=== PATIENT | male | born 1975 | race Caucasian/White ===

== ENCOUNTER 2019-09-24 16:57 | Emergency (ER) | payer BC, SELFPAY ==
[2019-09-24 17:02] VITALS: BP 159/100; PULSE 96; RESP 20; TEMP 36.1; O2SAT 96
--- NOTE | 2019-09-24 17:27 | W.ED.GENAD ---
Discharge Plan Disposition Patient Disposition: HOME Condition: Good Discharge Details Chief Complaint: Orthopedic Clinical Impression: Patellar tendinitis Primary Care Provider: Kate Vasquez ED Provider: Salina Pinedo Home Meds and New Rx's Prescriptions: Continued sertraline 50 mg Tablet 50 mg PO DAILY RF: 0 cholecalciferol (vitamin D3) [Vitamin D3] 125 mcg (5,000 unit) Tablet 5,000 unit PO DAILY RF: 0 Discharge Instructions Instructions: Tendinitis (ED) Additional Instructions: Encourage rest, ice, elevation. Please continue with Aleve as needed for discomfort. You may augment this with Tylenol as needed for pain. Encourage flexion as discussed to regain your range of motion. If you develop fever/chills, increased pain or other new/worsening symptoms please seek care urgently once again. Otherwise, please call orthopedics offices to schedule follow up appointment, number listed below. Referrals: Ganga Balderas MD [ [facility] STAFF PHYSICIAN] - Discharge Data Discharge Date/Time-TO BE ENTERED AT DEPARTURE: 09/24/19 19:02 Medical Decision Making Patient is a 44 year old male, presenting today, accompanied by his , with c/c of left knee pain that began insidiously 2 days ago. Denies any fevers or chills. Denies endometrioma. However, does report playing with his children being on his knees throughout the course the day. He reports that he has had an exact as pain in his knee historically but it is been several years. Believes he was diagnosed with a meniscal injury. On exam, patient is resting comfortably. Exam of the right knee is significant for limited range of motion. He is unable to flex past 45 degrees. No evidence of trauma. He is primarily point tender over the patellar tendon. He has no effusion, no erythema, warmth or drainage. No evidence of trauma. Exam is limited secondary to the patient's discomfort and very limited mobility but he does not have any discomfort or evidence of ligamentous injury with varus valgus stress testing. Unable to perform Jeronimo's testing. He does not have any discomfort with axial loading. Plan for imaging. FINDINGS: Bones/joints: Mild degenerative changes. No evidence for acute bony injury. Soft tissues: Unremarkable. IMPRESSION: 1. Mild degenerative changes. 2. No evidence for acute bony injury. If clinical symptoms persist recommend followup film in 7-10 days. At this time, patient does not appear to be acute meniscal injury. He is more tender directly over the patellar tendon make me think more patellar tendinitis. However, given the patient's history and his severe pain and limited flexion, I do feel that follow-up with orthopedics would be appropriate for reevaluation of possible meniscal injury. Encourage rest, ice, elevation. Patient will be fitted with a hinged knee brace to help with discomfort. We discussed return precautions. He will contact orthopedics tomorrow to schedule follow-up appointment. All his questions and concerns were addressed and he is in agreement this plan. HPI General Mode of arrival: ambulatory. Date/Time Provider Initiated Documentation: 09/24/19 17:27. Limitations to Documentation: no limitations. Information obtained by: patient, family () and RN notes reviewed. History of Present Illness 44 year old M presents to the emergency department with the chief complaint of right knee pain, described as moderate, with intensity rated at 6. Quality is described as aching, and is localized to the right and lower extremity. Patient reports no radiation. Patient started experiencing this day(s) (2) and it has been constant. Immobilization improves symptom(s), Patient notes no other symptoms.; denies fever/chills, rash, shortness of breath and weakness. Patient did receive the following treatments prior to arrival, none Related Data Home Medications Medication Instructions Recorded Confirmed cholecalciferol (vitamin D3) 5,000 unit PO DAILY 09/24/19 09/24/19 [Vitamin D3] sertraline 50 mg PO DAILY 09/24/19 09/24/19 Allergies Allergy/AdvReac Type Severity Reaction Status Date / Time No Known Allergies Allergy Unverified 09/24/19 17:05 General Stated Complaint: Orthopedic KAYLA: 3 Review of Systems Constitutional Constitutional: Reports as per HPI, Denies chills, Denies fever(s), Denies headache(s) and Denies weakness ENT Ears, Nose, Mouth, and Throat: Denies headache(s) Cardiovascular Cardiovascular: Reports as per HPI Respiratory Respiratory: Reports as per HPI and Denies cough Musculoskeletal Musculoskeletal: Reports as per HPI and Denies tingling Integumentary/Breasts Skin/Breast: Reports as per HPI, Denies rash and Denies wounds Neurologic Neurologic: Reports as per HPI, Denies headache(s), Denies tingling, Denies paresthesias and Denies weakness [facility] Social History Smoking/Tobacco Use Status: Never Alcohol Intake: current Alcohol Intake frequency: a few times a month Substance use type: does not use Do you feel safe at home: Yes Exam Const General: cooperative, healthy appearing, comfortable, no acute distress, well developed and well groomed Nutritional Appearance: average body habitus and well nourished Orientation: alert and awake Resp Effort & Inspection: normal respiratory effort, able to speak in complete sentences and no respiratory distress Cardio Rate: regular rate Rhythm: regular rhythm Skin General skin exam: no rashes or lesions noted Lesions: no lesions Rashes: no rashes Trauma: no lacerations or abrasions Neuro General: alert and awake Cognition: normal cognition Speech: speech normal Gait: antalgic Motor: muscle tone normal throughout Sensory Exam: no sensory deficits noted Extrem Right lower extremity: normal capillary refill, no joint enlargement, hip/thigh Details: normal to inspection, knee Details: tenderness Location: of the infrapatellar area and abnormal ROM Details: held in an abnormal fashion Details: in extension, pain with active ROM during Details: in flexion and pain with passive ROM during Details: in flexion; able to extend lower leg actively; inspection abnormal, no swelling, ROM abnormal, normal knee ligament exam, no abrasions, no lacerations, no ecchymosis, no crepitus, no deformity and no unusual warmth, lower leg Details: normal to inspection and no edema; no tenderness, no localized swelling, no palpable cords, no ecchymosis, no crepitus, no deformity and no unusual warmth, ankle Details: normal to inspection and foot Details: normal capillary refill; abnormal to inspection (tender over patellar tendon), ROM limited (unable to flex past 45 degrees secondary to anterior knee pain) and no edema Psych Appearance: grossly normal and well kempt Mental Status: mental status grossly normal Speech and Movement: speech and movement normal Course Vital Signs Vital signs: Vital Signs Temperature 36.1 C L 09/24/19 17:02 Pulse 96 H 09/24/19 17:02 Respiratory Rate 20 09/24/19 17:02 Blood Pressure 159/100 H 09/24/19 17:02 Pulse Oximetry 96 09/24/19 17:02 Temperature 36.1 C L 09/24/19 17:02 Temperature Source Temporal Artery Scan 09/24/19 17:02 Pulse 96 H 09/24/19 17:02 Respiratory Rate 20 09/24/19 17:02 Blood Pressure 159/100 H 09/24/19 17:02 Blood Pressure Position Sitting 09/24/19 17:02 Pulse Oximetry 96 09/24/19 17:02 Oxygen Delivery Method Room Air 09/24/19 17:02 Oxygen Flow Rate 0 09/24/19 17:02 Pain Level 0 09/24/19 17:02 Comment 09/24/19 17:02
[2019-09-24] MEDS: Acetaminophen 500 MG TAB 1000 MG PO (17:56)
--- NOTE | 2019-09-24 18:11 | DI.RAD_ITS ---
EXAM: XR KNEE RT 4V AP,LAT,LUC,PAT INDICATION: pain anteriorly, unable to flex. COMPARISON: No exams were available for comparison TECHNIQUE: 2D digital imaging was performed. FINDINGS: No fracture or joint effusion is seen. Degenerative changes are noted, greatest at the patellofemora l joint. IMPRESSION: No acute abnormality. Degenerative changes.
--- NOTE | 2019-09-24 18:33 | DI.VRAD_ITS ---
PROCEDURE INFORMATION: Exam: XR Left Knee Exam date and time: 09/24/2019 6:18 PM Age: 44 years old Clinical indication: Right; Patient HX: Pain R knee, unable to flex TECHNIQUE: Imaging protocol: XR Left knee. Views: 4 or more views. COMPARISON: No relevant prior studies available. FINDINGS: Bones/joints: Mild degenerative changes. No evidence for acute bony injury. Soft tissues: Unremarkable. IMPRESSION: 1. Mild degenerative changes. 2. No evidence for acute bony injury. If clinical symptoms persist recommend followup film in 7-10 days. Dictated and Authenticated by: Iris Craven MD. Ordering:GURDEEP Downing MD
== END 2019-09-24 19:02 | disposition home or self-care (01) ==
PROVIDERS: Emergency Provider Physician Assistant; PCP Nurse Practitioner Family
DX: M76.52 Patellar tendinitis, left knee (principal)
CPT/HCPCS: 29505; 99283; 73564; L1810

== ENCOUNTER 2021-08-08 20:28 | Emergency (ER) | payer BC, SELFPAY ==
[2021-08-08 20:35] VITALS: BP 127/100; PULSE 102; RESP 16; TEMP 36.4; O2SAT 96
--- NOTE | 2021-08-08 20:45 | DI.CT_ITS ---
Exam(s) CT ABDOMEN PELVIS W EXAM: CT ABDOMEN PELVIS W CLINICAL HISTORY: RLQ abd Pain. TECHNIQUE: Imaging Protocol: Axial computed tomography images with coronal and sagittal reformatted images were created and reviewed CONTRAST MATERIAL: Intravenous: Omnipaque 100cc Oral: None COMPARISON: No exams were available for comparison FINDINGS: VISUALIZED LUNG BASES: No nodules nor pleural effusions evident. ABDOMEN: There is no ascites. LIVER: The liver is diffusely hypodense implying steatosis. There are no discrete focal hepatic lesi ons evident. No dilatation of intrahepatic ducts. GALLBLADDER/BILIARY: No obvious gallbladder pathology. CBD is not dilated. PANCREAS: No evidence of pancreatic mass nor dilatation of the pancreatic duct. SPLEEN: Spleen is not enlarged. No obvious intrasplenic lesions. Splenic and portal veins are paten t. ADRENALS: Right adrenal gland unremarkable. Mild fusiform thickening of the lateral limb of the left adrenal gland is noted. KIDNEYS:There is a tiny nonobstructive calculus in left kidney. There are few small parapelvic cysts in the right kidney. No solid renal masses evident. No hydronephrosis. No hydroureter. No obviou s findings in the urinary bladder. No solid renal masses. ABDOMINAL AORTA: Abdominal aorta is not enlarged. LYMPH NODES:There is no retroperitoneal nor paraaortic adenopathy. ABDOMINAL WALL: No evidence of significant anterior abdominal wall nor inguinal hernia. GI: There is no evidence of bowel obstruction, free air, nor abscess. PELVIS: GI: No evidence of appendicitis.No evidence of sigmoid diverticulitis. LYMPH NODES: There is no intrapelvic nor inguinal adenopathy. REPRODUCTIVE: Normal size prostate. Seminal vesicles unremarkable URINARY BLADDER: No calculi nor obvious masses evident OSSEOUS: No significant osseous lesions. There is partial ankylosis of the right sacroiliac joint. IMPRESSION: 1. Hepatic steatosis. Mild hepatomegaly. No discrete focal hepatic lesions. No ascites. 2. Tiny 2-3 millimeter nonobstructive calculus in the left kidney and small parapelvic cysts are note d in the right kidney. 3. Mild fusiform dilatation of the lateral limb of the left adrenal gland, possibly small adenoma. N o other adrenal findings. RADIATION DOSE DELIVERED: 1,955.8mGy.cm Total DLP DATA REPOSITORY: All CT scans at this facility are submitted to the National Radiology Data Registry (NRDR) Dose Index Registry (DIR) with the [employer] ([employer]). RADIATION OPTIMIZATION: All CT scans at this facility use at least one of these dose optimization te chniques: automated exposure control; mA and/or kV adjustment per patient size (includes targeted exa ms where dose is matched to clinical indication); or iterative reconstruction.
--- NOTE | 2021-08-08 20:50 | ED.GENADUL_ITS ---
Discharge Plan Disposition Patient Disposition: HOME Condition: Stable Discharge Details Clinical Impression: Abdominal pain, Adrenal hyperplasia Primary Care Provider: Ganga Sosa ED Provider: Katina Dutta Home Meds and New Rx's Prescriptions: Continued sertraline 50 mg Tablet 150 mg PO DAILY RF: 0 cholecalciferol (vitamin D3) [Vitamin D3] 125 mcg (5,000 unit) Tablet 5,000 unit PO DAILY RF: 0 semaglutide (weight loss) 0.25 mg/0.5 mL Pen Injector 1 mg SUBCUT QWEEK RF: 0 Discharge Instructions Instructions: Abdominal Pain (ED) Additional Instructions: Please follow-up with your primary care provider regarding the cyst on your kidney and the adrenal nodule and enlarged adrenal glands. The CT of your abdomen shows no indication for appendicitis. However you do have some constipation which can contribute to the pain. At this time it is most likely due to an abdominal wall strain. Please take Tylenol or Ibuprofen with food every 4-6 hours as needed for pain and swelling. Follow up with primary care provider in 3-5 days. Return to ED sooner if any worsening or concerns. Increase oral fluids. Referrals: Ganga Sosa [Primary Care Provider] - 5 days Medical Decision Making Presents to the 46-year-old male presents to the ER with chief complaint of right lower quadrant abdominal pain for the last 3 days. Patient report that he turned and cough and noted an acute sharp pain in his right lower quadrant. Reports that it has been present intermittently since then and has worsened. Gets worse with bending or movement. He did have diarrheal stools last night. Denies any nausea vomiting, fever or chills. He does endorse cough for the last couple. He states that he had a negative home Covid antigen test recently. He does report that he began a weight loss injection on the day that this pain began. He denies any other associated symptoms. No history of abdominal surgeries. Abdominal work-up ordered including CBC, CMP,, CT abdomen pelvis with contrast. Differential diagnosis includes vomiting to appendicitis, hernia, musculoskeletal CBC shows no leukocytosis, CMP largely within normal limits glucose is 141, CT abdomen pelvis with contrast results per V rad as noted below. IMPRESSION: 1. Constipation without bowel obstruction. Normal appendix. 2. Enlarged, fatty infiltrated liver. 3. Cystic lesions within the inferior pole of the right kidney, likely r epresenting parapelvic cysts. No hydronephrosis. 3 mm nonobstructing left-sided renal stone. 4. Possible adrenal hyperplasia, with a possible superimposed 9 x 11 mm left adrenal nodule. Thank you for allowing us to participate in the care of your patient. Dictated and Authenticated by: Rossi Najera MD [id number]: Discussed CT and lab results with patient who verbalized understanding. D iscussed follow-up with PCP regarding the kidney cyst and the adrenal nodule. Patient verbalizes understanding. He reports feeling much better. I do suspect a musculoskeletal abdominal wall strain. Instructed home care and strict return instructions. This text was generated using [employer] system, please disregard any oddities of phrase or misspellings. HPI General Mode of arrival: ambulatory . Date/Time Provider Initiated Documentation: 08/08/21 20:28 . Limitations to Documentation: no limitations . Information obtained by: patient and RN notes reviewed . HPI Narrative: Presents to the 46-year-old male presents to the ER with chief complaint of right lower quadrant abdominal pain for the last 3 days. Patient report that he turned and cough and noted an acute sharp pain in his right lower quadrant. Reports that it has been present intermittently since then and has worsened. Gets worse with bending or movement. He did have diarrheal stools last night. Denies any nausea vomiting, fever or chills. He does endorse cough for the last couple. He states that he had a negative home Covid antigen test recently. He does report that he began a weight loss injection on the day that this pain began. He denies any other associated symptoms. No history of abdominal surgeries. Related Data Home Medications Medication Instructions Recorded Confirmed cholecalciferol (vitamin D3) 5,000 unit PO DAILY 09/24/19 09/24/19 [Vitamin D3] sertraline 150 mg PO DAILY 09/24/19 09/24/19 semaglutide (weight loss) 1 mg SUBCUT QWEEK 08/08/21 08/08/21 Allergies Allergy/AdvReac Type Severity Reaction Status Date / Time No Known Allergies Allergy Unverified 09/24/19 17:05 General Stated Complaint: Abd Prob KAYLA: 3 Review of Systems All systems reviewed & are unremarkable except as noted in HPI and below Gastrointestinal Gastrointestinal: Reports as per HPI, Reports abdominal pain and Reports diarrhea PFSH All Active Problems (Updated 08/08/21 @ 22:34 by Katina Dutta) Patellar tendinitis (Acute) Abdominal pain (Acute) Adrenal hyperplasia (Acute) Social History Smoking/Tobacco Use Status: Never Smoking risk assessment performed?: Yes Alcohol Intake: current Alcohol Intake frequency: a few times a month Substance use type: does not use Do you feel safe at home: Yes Exam Narrative Exam Narrative: Constitutional: Alert and oriented x3. Appears stated age. Obese body habitus. Head: Normocephalic, no trauma. Eyes: Pupils PERRL, Red reflex noted, EOM's intact. Eyelids symmetrical without lesions, discharge, or swelling. ENT: Bilateral TM's WNL, External ear normal to inspection, no mastoid TTP, swelling, or erythema, Nasal turbinates WNL, no nasal discharge. Normal dentition, Posterior pharynx WNL, no exudate. Chest: RRR, Normal S1, S2, distal pulses intact. Resp: Lungs clear to auscultation bilaterally, no wheezes, rales, or rhonchi. Abdomen: Large habitus. Exam limited. soft, non-distended, Normoactive bowel sounds all 4 quads. Musculoskeletal: Normal gait, 5/5 strength to all four extremities. Skin: No suspicious rashes or lesions. Capillary refill less than 2 sec. Neurologic: Cranial nerves II-XII intact. Alert and oriented x 3. Motor: No deficits noted. Sensory: Intact bilaterally all 4 extremities. Reflexes: DTR's intact bilaterally.. Hematologic/Lymphatic: No ecchymosis, no lymphadenopathy. Course Vital Signs Vital signs: Vital Signs Temperature 36.4 C L 08/08/21 20:35 Pulse 102 H 08/08/21 20:35 Respiratory Rate 16 08/08/21 20:35 Blood Pressure 127/100 H 08/08/21 20:35 Pulse Oximetry 96 08/08/21 20:35 Temperature 36.4 C L 08/08/21 20:35 Temperature Source Tympanic 08/08/21 20:35 Pulse 102 H 08/08/21 20:35 Respiratory Rate 16 08/08/21 20:35 Respiratory Effort 08/08/21 20:44 Blood Pressure 127/100 H 08/08/21 20:35 Blood Pressure Position Sitting 08/08/21 20:35 Pulse Oximetry 96 08/08/21 20:35 Oxygen Delivery Method Room Air 08/08/21 20:35 Oxygen Flow Rate 0 08/08/21 20:35 Pain Level 4 08/08/21 20:35 PAWSS Have you Been Recently Intoxicated or Drunk Within the Last 30 days?: No Have you Ever Experienced Previous Episodes of Alcohol Withdrawal?: No Have you ever Experienced Withdrawal Seizures?: No Have you ever Experienced Delirium Tremens(DT)s?: No Have you ever undergone Alcohol Rehabilitation Treatment (i.e, inpt ot outpatient treatment programs)?: No Have you ever Experienced Blackouts?: No Have you ever Combined Alcohol with other Downers within the last 90 days?: No Have you ever Combined Alcohol with any other Substance of Abuse during the last 90 days?: No Positive Blood Alcohol level on Presentation? [PCS.BAL]: Yes Result: 1
[2021-08-08 21:08] LABS: Abs Immature Grans 0.17 10^3/uL (0.0-0.06); Absolute Basophil Count 0.07 10^3/uL (0.0-0.2); Absolute Lymphocyte Count 2.27 10^3/uL (1.2-3.4); Absolute Monocyte Count 0.54 10^3/uL (0.1-0.8); Absolute Neutrophil Count 4.77 10^3/uL (1.2-6.7); Basophils % 0.9; Eosinophils % 2.5; HCT 40.4 % (40.0-50.0); HGB 12.6 g/dL (13.5-17.5); Immature Grans % 2.1; Lymphocytes % 28.3; MCH 26.8 pg (27.0-33.0); MCHC 31.2 % (32.0-36.0); MCV 85.8 fL (80-95); MPV 10.5 fL (8.0-11.0); Monocytes % 6.7; Neutrophils % 59.5; Nucleated RBC 0 %; Platelet Count 305 10^3/uL (130-400); RBC 4.71 10^6/uL (4.36-5.78); RDW 13.9 % (11.8-14.1); RDW-SD 43.5 fL; WBC 8.02 10^3/uL (4.4-10.8)
[2021-08-08 21:10] VITALS: BP 148/78
[2021-08-08 21:31] LABS: ALT 44 U/L (16-63); AST 15 U/L (15-37); Albumin 3.7 g/dL (3.4-5.0); Alkaline Phosphatase 73 U/L (46-116); Anion Gap 8.3 mmol/L (3-11); BUN 19 mg/dL (7-18); Bilirubin, Total 0.2 mg/dL (0.2-1.0); CO2 27.7 mmol/L (21.0-32.0); CREATININE 1.3 mg/dL (0.70-1.30); Calcium 9.2 mg/dL (8.5-10.1); Chloride 102 mmol/L (98-107); Estimated GFR 59.97 (mL/min/1.73m2); Glucose 141 mg/dL (74-106); Magnesium 2.1 mg/dL (1.8-2.4); Potassium 4.1 mmol/L (3.5-5.1); Sodium 138 mmol/L (136-145); Total Protein 7.8 g/dL (6.4-8.2)
[2021-08-08] MEDS: Omnipaque 350 MG/ML 100 ML BTL IJ (21:55)
--- NOTE | 2021-08-08 22:16 | DI.VRAD_ITS ---
PROCEDURE INFORMATION: Exam: CT Abdomen And Pelvis With Contrast Exam date and time: 08/08/2021 8:50 PM Age: 46 years old Clinical indication: Other: Rlq and back pain TECHNIQUE: Imaging protocol: Computed tomography of the abdomen and pelvis with contrast. COMPARISON: No relevant prior studies available. FINDINGS: Lungs: The lung bases are clear. Heart: The heart is upper limits of normal in size. No pericardial effusion. Mediastinal space: The distal esophagus is normal appearance. Liver: The liver is moderately enlarged and significantly fatty infiltrated. Gallbladder and bile ducts: The gallbladder is contracted. No calcified gallstones. No pericholecystic fluid or gallbladder wall thickening. No bile duct dilatation. Pancreas: The pancreas is normal in appearance. No pancreatic ductal dilatation. Spleen: The spleen is normal in size. Adrenal glands: The bilateral adrenal glands are slightly enlarged and lobulated suggesting adrenal hyperplasia. A possible superimposed nodule is seen within the lateral limb of the left adrenal gland measuring 9 x 11 mm. Kidneys and ureters: The bilateral kidneys are normal appearance. No hydroureteronephrosis. Parapelvic cysts are seen within the inferior right renal pelvis. A 3 mm nonobstructing stone is seen within the left renal pelvis. Stomach and bowel: Fecalization of the mid and distal small bowel. A mild amount of stool is seen throughout the colon to the level of the rectum. No bowel obstruction or pneumatosis. The stomach is normal appearance. Appendix: The appendix is visualized and is normal in appearance. Intraperitoneal space: No free fluid, free air or abscess. Vasculature: The abdominal aorta is normal in caliber without aneurysm. Lymph nodes: No lymphadenopathy within the abdomen and pelvis. Urinary bladder: The urinary bladder is normal appearance. Reproductive: The prostate gland is normal in size. Bones/joints: Diffuse idiopathic skeletal hyperostosis throughout the lower thoracic spine. Mild lumbar spondylosis. No evidence for acute fracture. Soft tissues: Unremarkable. IMPRESSION: 1. Constipation without bowel obstruction. Normal appendix. 2. Enlarged, fatty infiltrated liver. 3. Cystic lesions within the inferior pole of the right kidney, likely representing parapelvic cysts. No hydronephrosis. 3 mm nonobstructing left-sided renal stone. 4. Possible adrenal hyperplasia, with a possible superimposed 9 x 11 mm left adrenal nodule. Dictated and Authenticated by: Rossi Najera MD. Ordering:JESSE Ambriz MD
[2021-08-08 22:31] LABS: Bilirubin Negative (Negative); Blood Negative (Negative); Clarity Clear (Clear); Glucose Negative (Negative); Ketones Negative (Negative); Leukocyte Esterase Negative (Negative); Nitrite Negative (Negative); Specific Gravity 1.015 (1.005-1.025); Urobilinogen 0.2 EU/dL (Up TO 0.2)
== END 2021-08-08 22:57 | disposition home or self-care (01) ==
PROVIDERS: Emergency Provider Registered Nurse Emergency; PCP Family Medicine
DX: R10.31 Right lower quadrant pain (principal); E27.8 Other specified disorders of adrenal gland; N28.1 Cyst of kidney, acquired
CPT/HCPCS: 80053; 99285; 74177; 81003; 83735; 85025; 99283; J3490

== ENCOUNTER 2022-02-26 15:42 | Emergency (ER) | payer BC, SELFPAY ==
[2022-02-26 15:48] VITALS: BP 180/86; PULSE 98; RESP 17; TEMP 36.8; O2SAT 92
[2022-02-26] MEDS: Tetanus & Diphtheria Tox,ADULT 0.5 ML VIAL IM (17:02)
--- NOTE | 2022-02-26 17:17 | ED.GENADUL_ITS ---
Discharge Plan Disposition Patient Disposition: HOME Condition: Stable Discharge Details Clinical Impression: Puncture wound Primary Care Provider: Ganga Sosa ED Provider: Netta Nevarez Home Meds and New Rx's Prescriptions: New cephalexin 500 mg capsule 500 mg PO Q6H 7 Days Qty: 28 0RF Continued sertraline 50 mg Tablet 150 mg PO DAILY cholecalciferol (vitamin D3) [Vitamin D3] 125 mcg (5,000 unit) Tablet 5,000 unit PO DAILY Discharge Instructions Instructions: Puncture Wound (ED) Additional Instructions: Take antibiotic as prescribed Keep wound clean and dry, do not place any bacitracin over the site Check wound daily to make sure is not infected Head elevate and decrease use is much as possible until it heals She developed redness, swelling, worsening pain, please return to the emergency department for reassessment Referrals: Ganga Sosa [Primary Care Provider] - Discharge Data Discharge Date/Time-TO BE ENTERED AT DEPARTURE: 02/26/22 17:32 Medical Decision Making With site irrigated copiously and dressing applied Keflex given puncture wounds Return precautions discussed and patient expressed understanding Dressing applied by nursing staff Medical Records Medical records reviewed: Yes I reviewed the patient's medical records. HPI General Date/Time Provider Initiated Documentation: 02/26/22 15:49 . HPI Narrative: This patient presents status post puncture wound to base of left thumb. States he was using a screwdriver and accidentally punctured his thumb. Tetanus up-to-date. Denies any additional complaints at this time. Event occurred just prior to arrival. Related Data Home Medications Medication Instructions Recorded Confirmed cholecalciferol (vitamin D3) 125 5,000 unit PO DAILY 09/24/19 02/26/22 mcg (5,000 unit) tablet (Vitamin D3) sertraline 50 mg tablet 150 mg PO DAILY 09/24/19 02/26/22 cephalexin 500 mg capsule 500 mg PO Q6H 7 days #28 caps 02/26/22 Previous Rx's Medication Instructions Recorded cephalexin 500 mg capsule 500 mg PO Q6H 7 days #28 caps 02/26/22 Allergies Allergy/AdvReac Type Severity Reaction Status Date / Time No Known Allergies Allergy Unverified 02/26/22 15:55 General Stated Complaint: Laceration KAYLA: 3 Review of Systems All systems reviewed & are unremarkable except as noted in HPI and below PFSH All Active Problems (Updated 02/26/22 @ 17:24 by ISIDRO Connor) Patellar tendinitis (Acute) Puncture wound (Acute) Social History Smoking/Tobacco Use Status: Never Smoking risk assessment performed?: Yes Alcohol Intake: current Alcohol Intake frequency: a few times a month Substance use type: does not use Do you feel safe at home: Yes Exam Const General: cooperative, comfortable and no acute distress Extrem Hand/finger images: 1. Approximately 3 mm puncture noted with surrounding ecchymosis, neurovascularly intact, flexion and extension intact Course Vital Signs Vital signs: Vital Signs Temperature 36.8 C 02/26/22 15:48 Pulse 98 H 02/26/22 15:48 Respiratory Rate 17 02/26/22 15:48 Blood Pressure 180/86 H 02/26/22 15:48 Pulse Oximetry 92 02/26/22 15:48 Temperature 36.8 C 02/26/22 15:48 Temperature Source Temporal Artery Scan 02/26/22 15:48 Pulse 98 H 02/26/22 15:48 Respiratory Rate 17 02/26/22 15:48 Blood Pressure 180/86 H 02/26/22 15:48 Blood Pressure Position Sitting 02/26/22 15:48 Pulse Oximetry 92 02/26/22 15:48 Oxygen Delivery Method Room Air 02/26/22 15:48 Oxygen Flow Rate 0 02/26/22 15:48 Pain Level 3 02/26/22 15:48
== END 2022-02-26 17:32 | disposition home or self-care (01) ==
PROVIDERS: Emergency Provider Physician Assistant; PCP Family Medicine
DX: S61.032A Puncture wound without foreign body of left thumb without damage to nail, initial encounter (principal); Z23 Encounter for immunization; W27.0XXA Contact with workbench tool, initial encounter
CPT/HCPCS: 90471; 99283

== ENCOUNTER 2023-05-31 18:04 | Outpatient (REF) | payer BC, SELFPAY ==
[2023-05-31 20:34] LABS: Source Nasal/Nares
[2023-05-31 20:57] LABS: ALT 59 U/L (16-63); AST 20 U/L (15-37); Albumin 3.9 g/dL (3.4-5.0); Alkaline Phosphatase 88 U/L (46-116); Anion Gap 12.7 mmol/L (3-11); BUN 16 mg/dL (7-18); Bilirubin, Total 0.2 mg/dL (0.2-1.0); CO2 23.3 mmol/L (21.0-32.0); Calcium 9.4 mg/dL (8.5-10.1); Chloride 99 mmol/L (98-107); Glucose 295 mg/dL (74-106); Potassium 4.7 mmol/L (3.5-5.1); Sodium 135 mmol/L (136-145); Total Protein 7.9 g/dL (6.4-8.2)
[2023-05-31 21:12] LABS: COVID-19 PCR Negative (Negative)
== END 2023-05-31 18:05 | disposition home or self-care (01) ==
LOC: NCHCN 18:04
PROVIDERS: PCP Family Medicine; Visit Provider Nurse Practitioner Family
DX: Z20.822 Contact with and (suspected) exposure to COVID-19 (principal); Z79.899 Other long term (current) drug therapy
CPT/HCPCS: 80053; 87635

== ENCOUNTER 2024-04-11 07:33 | Outpatient (CLI) | payer BC, SELFPAY ==
[2024-04-11 07:56] LABS: Abs Immature Grans 0.02 10^3/uL (0.0-0.06); Absolute Basophil Count 0.05 10^3/uL (0.0-0.2); Absolute Eosinophil Count 0.19 10^3/uL (0.0-0.7); Absolute Lymphocyte Count 1.99 10^3/uL (1.2-3.4); Absolute Monocyte Count 0.42 10^3/uL (0.1-0.8); Absolute Neutrophil Count 3.26 10^3/uL (1.2-6.7); Basophils % 0.8 %; Eosinophils % 3.2 %; HCT 42.3 % (40.0-50.0); HGB 13.7 g/dL (13.5-17.5); Immature Grans % 0.3 %; Lymphocytes % 33.6 %; MCH 27.6 pg (27.0-33.0); MCHC 32.4 % (32.0-36.0); MCV 85 fL (80-95); MPV 11.3 fL (8.0-11.0); Monocytes % 7.1 %; Platelet Count 222 10^3/uL (130-400); RBC 4.96 10^6/uL (4.36-5.78); RDW 13.7 % (11.8-14.1); RDW-SD 42.6 fL; WBC 5.93 10^3/uL (4.4-10.8)
[2024-04-11 08:18] LABS: Hemoglobin A1C 6.3 % (<5.7)
[2024-04-11 08:31] LABS: *AMPHETAMINES SCREEN URINE Negative (Negative); *BARBITURATES SCREEN URINE Negative (Negative); *BENZODIAZEPINES SCREEN URINE Negative (Negative); Cannabinoids THC Negative (Negative); Cocaine Screen,Urine Negative (Negative); METHADONE URINE SCREEN Negative (Negative); OPIATES URINE SCREEN Negative (Negative)
[2024-04-11 08:32] LABS: Tricyclic Antidepressants Negative (Negative)
[2024-04-11 08:40] LABS: ALT 34 U/L (16-63); AST 15 U/L (15-37); Albumin 3.8 g/dL (3.4-5.0); Alkaline Phosphatase 85 U/L (46-116); BUN 10 mg/dL (7-18); Bilirubin, Total 0.43 mg/dL (0.2-1.0); CREATININE 0.8 mg/dL (0.70-1.30); Calcium 9.2 mg/dL (8.5-10.1); Calculated LDL 86 mg/dL (<100); Chloride 105 mmol/L (98-107); Cholesterol 162 mg/dL (<200); Estimated GFR 110.53 (mL/min/1.73m2); Folate 17.6 ng/mL (8.6-20.0); Glucose 139 mg/dL (74-106); HDL Cholesterol 55 mg/dL (40-60); Potassium 4.5 mmol/L (3.5-5.1); Sodium 140 mmol/L (136-145); TSH (W/Ref FT4) 1.37 uIU/mL (0.36-3.74); Total Protein 7.3 g/dL (6.4-8.2); Triglyceride 108 mg/dL (<150); Vitamin B12 672 pg/mL (193-986); Vitamin D 25 Total 23.1 ng/mL (30-100)
[2024-04-12 15:50] LABS: Hep A Total Ab w Rflx IgM Negative (Negative)
== END 2024-04-11 07:34 | disposition home or self-care (01) ==
LOC: LBO 07:33
PROVIDERS: PCP Family Medicine; Visit Provider Nurse Practitioner Family
DX: F33.9 Major depressive disorder, recurrent, unspecified (principal); E56.9 Vitamin deficiency, unspecified
CPT/HCPCS: 36415; 80053; 80061; 80307; 82306; 86709; 82607; 82746; 83036; 83735; 84443; 85025

== ENCOUNTER 2025-02-08 09:53 | Outpatient (CLI) | payer OTHER, SELFPAY ==
[2025-02-08 09:46] LABS: HCT 42.4 % (40.0-50.0); HGB 13.9 g/dL (13.5-17.5)
[2025-02-08 10:12] LABS: Hemoglobin A1C 6.4 % (<5.7)
[2025-02-08 10:32] LABS: MCH 27.9 pg (27.0-33.0); MCHC 33.2 % (32.0-36.0); MCV 84 fL (80-95); MPV 11.5 fL (8.0-11.0); Platelet Count 223 10^3/uL (130-400); RBC 5.09 10^6/uL (4.36-5.78); RDW 13.9 % (11.8-14.1); RDW-SD 42.5 fL; WBC 5.87 10^3/uL (4.4-10.8)
[2025-02-08 10:59] LABS: ALT 40 U/L (16-63); AST 18 U/L (15-37); Albumin 3.9 g/dL (3.4-5.0); Alkaline Phosphatase 81 U/L (46-116); Anion Gap 10.9 mmol/L (3-11); BUN 14 mg/dL (7-18); Bilirubin, Total 0.4 mg/dL (0.2-1.0); CO2 25.1 mmol/L (21.0-32.0); CREATININE 0.7 mg/dL (0.70-1.30); Calcium 9.1 mg/dL (8.5-10.1); Chloride 103 mmol/L (98-107); Estimated GFR 114.37 (mL/min/1.73m2); Ferritin 208 ng/mL (26-388); Glucose 131 mg/dL (74-106); Potassium 4.2 mmol/L (3.5-5.1); Sodium 139 mmol/L (136-145); Total Protein 7.4 g/dL (6.4-8.2)
[2025-02-08 11:00] LABS: Folate > 20.0 ng/mL (8.6-20.0)
[2025-02-08 11:01] LABS: Iron 110 ug/dL (65-175); Total Iron Binding Capacity 349 ug/dL (250-450); Transferrin Sat 32 % (20-55)
[2025-02-08 11:08] LABS: Vitamin D 25 Total 25 ng/mL (30-100)
[2025-02-08 11:12] LABS: Vitamin B12 736 pg/mL (193-986)
[2025-02-08 18:39] LABS: Parathyroid Hormone,Intact 70 pg/mL (19-88)
[2025-02-12 11:05] LABS: Thiamine (Vitamin B1), WB 150 nmol/L (70-180)
== END 2025-02-08 09:54 | disposition home or self-care (01) ==
LOC: LBO 09:53
PROVIDERS: Nurse Practitioner Family; PCP Family Medicine; Visit Provider Surgery
DX: Z98.84 Bariatric surgery status (principal); E11.9 Type 2 diabetes mellitus without complications
CPT/HCPCS: 36415; 80053; 82306; 85027; 82607; 82728; 82746; 83036; 83540; 83550; 83970; 84425; 85014; 85018